=== PATIENT | male | born 1985 | race Caucasian/White ===

== ENCOUNTER 2017-04-16 09:36 | Emergency (ER) | payer OTHER ==
[2017-04-16 10:10] VITALS: BP 127/80
--- NOTE | 2017-04-16 10:42 | UC ---
Back Pain HPI - HPI Summary HPI Summary: 32 yo male with onset of back pain yesterday may have over done it over the holiday no radiation of pain hx herniated cervical disc - History of Current Complaint Chief Complaint: UCBackPain Stated Complaint: BACK PAIN Time Seen by Provider: 04/16/17 10:26 Hx Obtained From: Patient Onset/Duration: Gradual Onset, Lasting Hours Timing: Constant Severity Initially: Moderate Severity Currently: Moderate Pain Intensity: 4 - worse with movement Pain Scale Used: 0-10 Numeric Character: Aching, Throbbing Aggravating: Movement, Lifting, Bending Alleviating: Rest Related History: Similar Episode Dx As - back strain - Allergies/Home Medications Home Medications: Home Medications Acetaminophen TAB* [Tylenol TAB*] 1,000 mg PO Q8H PRN 04/16/17 [History Confirmed 04/16/17] Cyclobenzaprine TAB* [Flexeril 10 MG TAB*] 10 mg PO ONCE PRN 04/16/17 [History Confirmed 04/16/17] Eczema Ointment 1 applic TOPICAL DAILY 04/16/17 [History Confirmed 04/16/17] PMH/Surg Hx/FS Hx/Imm Hx Previously Healthy: Yes - Surgical History Surgical History: Yes Surgery Procedure, Year, and Place: t/a - Family History Known Family History: Positive: Hypertension - Social History Alcohol Use: Occasionally Substance Use Type: Excessive Caffeine, Marijuana Substance Use Comment - Amount & Last Used: 2-3 espresso type drinks daily; marijuana q pm last was 04/15/17 Smoking Status (MU): Never Smoked Tobacco Review of Systems Constitutional: Negative Skin: Negative Eyes: Negative ENT: Negative Respiratory: Negative Cardiovascular: Negative Gastrointestinal: Negative Genitourinary: Negative Motor: Negative Neurovascular: Negative Musculoskeletal: Myalgia Neurological: Negative Psychological: Negative All Other Systems Reviewed And Are Negative: Yes Physical Exam Triage Information Reviewed: Yes Appearance: Well-Appearing, No Pain Distress, Well-Nourished Vital Signs: Initial Vital Signs Temp 97.6 F 04/16/17 09:41 Pulse 73 04/16/17 09:41 Resp 18 04/16/17 09:41 BP 127/80 04/16/17 09:41 Vital Signs Reviewed: Yes Eyes: Positive: Conjunctiva Clear ENT: Positive: Hearing grossly normal. Negative: Nasal congestion, Nasal drainage, Trismus, Muffled/hoarse voice Neck: Positive: Supple, Nontender Respiratory: Positive: Lungs clear, Normal breath sounds, No respiratory distress Cardiovascular: Positive: RRR, No Murmur Musculoskeletal: Positive: ROM Intact, No Edema Neurological: Positive: Alert, Muscle Tone Normal Psychological Exam: Normal Back Pain Course/Dx - Differential Dx/Diagnosis Provider Diagnoses: acute lumbar strain/spasm Discharge - Discharge Plan Condition: Stable Disposition: HOME Prescriptions: Cyclobenzaprine TAB* [Flexeril 10 MG TAB*] 10 mg PO TID PRN #21 tab PRN Reason: Spasms - Back Naproxen Sodium [Naproxen Sodium 500 MG TAB] 500 mg PO BID PRN #30 tab PRN Reason: Pain Patient Education Materials: Low Back Strain (ED) Forms: *Work Release Referrals: Devante Moore MD [Primary Care Provider] - 5 Days (if not better) Additional Instructions: recheck here if you are not feeling better prior to returning to work don't take muscle relaxant and drive or work Images Front/Back of Body, Lg ([place]): 1 - bilate paraspinous muscle tenderness. R>L
== END 2017-04-16 10:53 | disposition home or self-care (01) ==
LOC: UCCORT 09:36
DX: S39.012A Strain of muscle, fascia and tendon of lower back, initial encounter (principal); X58.XXXA Exposure to other specified factors, initial encounter; Y93.9 Activity, unspecified; Y92.9 Unspecified place or not applicable; M62.830 Muscle spasm of back; F12.90 Cannabis use, unspecified, uncomplicated
CPT/HCPCS: 99202; G0463

== ENCOUNTER 2017-11-26 14:31 | Emergency (ER) | payer OTHER ==
[2017-11-26 15:52] VITALS: BP 135/77
[2017-11-26] MEDS ORDERED: Ondansetron ODT TAB* 4 MG PO ONE (15:54)
--- NOTE | 2017-11-26 17:01 | UC ---
Nausea/Vomiting/Diarrhea HPI - HPI Summary HPI Summary: pt presents c/o sudden onset n/v/d since 10:30 pm last night. he is c/o fever, bodyaches and abdominal pain. diarrhea is watery but denies blood and mucous. no hx IBD, travel, well water, sick contacts, raw seafood consumption and recent antibiotic use. he also c/o feeling weak and dizzy. 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 Onset/Duration: Sudden Onset Timing: Constant Severity Initially: Severe Severity Currently: Severe Pain Intensity: 0 Location: Discrete At: LUQ Character: Sharp, Cramping Aggravating Factor(s): Food Alleviating Factor(s): Nothing Vomiting Characteristics: Nonbilious Diarrhea Presence: Yes Diarrhea Characteristics: Watery - Risk Factors Influenza Risk Factors: Negative - Allergies/Home Medications Allergies/Adverse Reactions: Allergies Allergy/AdvReac Type Severity Reaction Status Date / Time amoxicillin [From Augmentin] Allergy Hives Verified 11/26/17 15:43 cefaclor [From Ceclor] Allergy Hives Verified 11/26/17 15:43 clavulanic acid Allergy Hives Verified 11/26/17 15:43 [From Augmentin] Penicillins Allergy Hives Verified 11/26/17 15:43 Home Medications: Home Medications Minocycline HCl 1 tab DAILY PRN 11/26/17 [History Confirmed 11/26/17] PMH/Surg Hx/FS Hx/Imm Hx Previously Healthy: Yes - Surgical History Surgical History: Yes Surgery Procedure, Year, and Place: t/a - Family History Known Family History: Positive: Hypertension - Social History Occupation: Employed Full-time Lives: With Family Alcohol Use: None Substance Use Type: None Substance Use Comment - Amount & Last Used: 2-3 espresso type drinks daily; marijuana q pm last was 04/15/17 Smoking Status (MU): Never Smoked Tobacco Review of Systems Constitutional: Fever, Chills, Fatigue Skin: Negative Eyes: Negative ENT: Negative Respiratory: Negative Cardiovascular: Negative Gastrointestinal: Abdominal Pain, Vomiting, Diarrhea Genitourinary: Negative Motor: Negative Neurovascular: Negative Musculoskeletal: Negative Neurological: Negative Psychological: Negative Is Patient Immunocompromised?: No All Other Systems Reviewed And Are Negative: Yes Physical Exam Triage Information Reviewed: Yes Appearance: Ill-Appearing Vital Signs: Initial Vital Signs Temp 99.5 F 11/26/17 15:46 Pulse 88 11/26/17 15:46 Resp 16 11/26/17 15:46 BP 135/77 11/26/17 15:46 Pulse Ox 100 11/26/17 15:46 Vital Signs Reviewed: Yes Eye Exam: Normal ENT Exam: Normal Neck: Positive: Supple, Nontender, No Lymphadenopathy Respiratory: Positive: Lungs clear, Normal breath sounds, No respiratory distress Cardiovascular: Positive: RRR, No Murmur Abdomen Description: Positive: No Organomegaly, Soft, Other: - LUQ tenderness but no quarding or HSM on exam Bowel Sounds: Positive: Hyperactive Musculoskeletal Exam: Normal Neurological: Positive: Alert Psychological: Positive: Age Appropriate Behavior Skin Exam: Normal Diagnostics - Laboratory Diagnostic Studies Completed/Ordered: rapid flu=negative Naus/Vom/Diarrhea Course/Dx - Course Course Of Treatment: pt has acute intractable v/d with LUQ pain. requires additional evaluation and agrees to ER transfer. rapid flu was negative and no relief from n/v with zofran here. fiance driving pt to ER directly from . - Differential Dx/Diagnosis Differential Diagnoses - Male: Hepatitis, Pancreatitis, Enterocolitis, Gastroenteritis (Viral), Gastroenteritis (Bacterial) Condition At Discharge: Stable - Physician Notification/Consults Time Discussed With Above Provider: 17:08 Discharge - Discharge Plan Condition: Stable Disposition: TRANS HIGHER LVL OF CARE FAC Referrals: Devante Moore MD [Primary Care Provider] - Additional Instructions: GO DIRECTLY TO THE [facility] ER. DO NOT ATTEMPT TO EAT OR DRINK
== END 2017-11-26 17:16 | disposition short-term general hospital (02) ==
LOC: UCCORT 14:31
DX: R11.2 Nausea with vomiting, unspecified (principal); R19.7 Diarrhea, unspecified; R10.32 Left lower quadrant pain
CPT/HCPCS: 87502; 99212; A9270-GY; G0463

== ENCOUNTER 2018-07-01 07:26 | Emergency (ER) | payer OTHER ==
[2018-07-01 07:43] VITALS: BP 121/69
[2018-07-01] MEDS ORDERED: Ibuprofen TAB* 600 MG PO ONE (07:57)
--- NOTE | 2018-07-01 08:01 | UC ---
Neck Pain HPI - HPI Summary HPI Summary: 33 YO MALE who comes to clinic today with a chief complaint of neck and right shoulder pain. Patient reports he slipped and fell on his stairs at home this morning. When he fell he grabbed THE RAILING with his right arm. Initially went to work but noticed that his right shoulder and neck pain or worsening. He went and saw the nurse at work she recommended further evaluation. Patient' s had a prior injury of C5 6 and C6 7 disc's. In the past she's had intermittent radiculopathy into the arms to include intermittent numbness. The worst of the symptoms are usually on the right side. The worst pain now is in the right shoulder although the patient also feels it in his lower neck. When he moves his shoulder that pain does radiate down into the right hand. No complaints of weakness this morning. Patient did have some tingling and right hand fingers but he does not have THAT NOW.. - History of Current Complaint Chief Complaint: UCUpperExtremity Stated Complaint: S/P FALL NECK AND RIGHT SHOULDER Time Seen by Provider: 07/01/18 07:44 Pain Intensity: 4 - Allergies/Home Medications Allergies/Adverse Reactions: Allergies Allergy/AdvReac Type Severity Reaction Status Date / Time amoxicillin [From Augmentin] Allergy Hives Verified 07/01/18 07:40 cefaclor [From Ceclor] Allergy Hives Verified 07/01/18 07:40 clavulanic acid Allergy Hives Verified 07/01/18 07:40 [From Augmentin] Penicillins Allergy Hives Verified 07/01/18 07:40 Home Medications: Home Medications Guaifen/Phenyleph/Acetaminophn [Tylenol Sinus Severe Caplet] 2 tab PO SEE INSTRUCTIONS PRN 07/01/18 [History Confirmed 07/01/18] PMH/Surg Hx/FS Hx/Imm Hx Previously Healthy: Yes - C5/6, C6/7 PRIOR DISK INJURY - Surgical History Surgical History: Yes Surgery Procedure, Year, and Place: T&A, 1990, [place] - Family History Known Family History: Positive: Hypertension, Diabetes, Other - FATHER PROSTATE CA - Social History Alcohol Use: None Substance Use Type: None Substance Use Comment - Amount & Last Used: 2-3 espresso type drinks daily; marijuana q pm last was 04/15/17 Smoking Status (MU): Never Smoked Tobacco Review Of Systems Constitutional: Positive: Negative Skin: Positive: Negative Eyes: Positive: Negative ENT: Positive: Negative Respiratory: Positive: Negative. Negative: Shortness Of Breath Cardiovascular: Positive: Negative. Negative: Chest Pain Gastrointestinal: Positive: Negative Genitourinary: Positive: Negative Musculoskeletal: Positive: Arthralgia, Decreased ROM - Of the right arm secondary to pain Neurological: Positive: Paresthesia - Patient reported some tingling in the right hand earlier. He does not have that now. No complaint of any weakness. Negative: Weakness Psychological: Positive: Negative All Other Systems Reviewed And Are Negative: Yes Physical Exam Triage Information Reviewed: Yes Appearance: Well-Appearing, Well-Nourished Vital Signs: Initial Vital Signs Temp 97.6 F 07/01/18 07:37 Pulse 65 07/01/18 07:37 Resp 15 07/01/18 07:37 BP 121/69 07/01/18 07:37 Pulse Ox 98 07/01/18 07:37 Vital Signs Reviewed: Yes Eye Exam: Normal Neck: Positive: Supple Respiratory: Positive: Chest non-tender, Lungs clear, Normal breath sounds, No respiratory distress Cardiovascular: Positive: RRR Musculoskeletal: Positive: ROM Limited @ - Patient has normal pulses both arms. The fingers and wrists and elbows have full range of motion and full strength. Left shoulder has full range of motion with extension and abduction and internal rotation is T8. Right arm internal rotation is L4. Right shoulder extension is 130 abduction is limited by pain to 90. Neurological: Positive: Muscle Tone Normal Psychological Exam: Normal Skin Exam: Normal Neck Pain Course/Dx - Course Course Of Treatment: Order Information: CT SPINE CERVICAL W/O. Accession Number : [id number]. CPT: 92967. INDICATION: Neck and RIGHT shoulder pain post fall. COMPARISON: No relevant prior exams available on the [facility] PACS for comparison. TECHNIQUE: Multidetector CT images foramen magnum to lung apices without contrast. Multiplanar reformation. REPORT: Normal vertebral alignment accounting for exam positioning without. spondylolisthesis or subluxation at any level. Negative for cervical vertebral body or. posterior element fracture. Negative for paravertebral hematoma. Multilevel degenerative spondylosis and facet joint osteoarthritis. At C5-C6 dorsal disc osteophyte complex results in mild impression on the ventral margin. of the thecal sac and uncinate process spurring and facet joint osteoarthritis results in. moderately severe RIGHT and mild LEFT foraminal stenosis. At C6-C7 dorsal disc osteophyte complex without significant resulting impression on the. ventral margin of the thecal sac. Uncinate process spurring and facet joint osteoarthritis. results in mild bilateral foraminal stenosis. IMPRESSION: #. No CT evidence for acute traumatic cervical spine injury. . <Electronically signed by Marcus Travis MD in OV> 07/01/18826. Order Information: SHOULDER RIGHT 2+ VWS. Accession Number: [id number]. CPT: 07094. Indication: RIGHT shoulder pain post fall. Comparison: No relevant prior exams available on the [facility] PACS for comparison. Technique: Internal rotation AP, external rotation Grashey, scapular Y, axillary views. RIGHT shoulder. Report: Negative for fracture. Normal acromioclavicular and glenohumeral joint alignment. No significant arthropathic change evident. Unremarkable soft tissue contours. IMPRESSION: # . Negative radiographic exam of the RIGHT shoulder. . <Electronically signed by Marcus Travis MD in [place]> 07/01/18827. Dictated By: Marcus Travis MD. Dictated Date/Time : 07/01/18827. Transcribed Date/Time: 07/01/18826. Discussed x-ray reports WITH the patient. The patient does have some tingling in his fingers bilaterally now. He reports this is common with his chronic neck injury. The plan now is be out of work for today and possibly tomorrow. Take ibuprofen and use Flexeril and [place] as needed. The patient has seen the [facility] in the past and is followed with THEM. As long as he improves, he'll be able to return to work tomorrow or the next day. If he does not improve he' ll follow-up with [facility]. We discussed further evaluation in the emergency department with access to MRI if any neurologic deficit develops. - Differential Dx/Diagnosis Provider Diagnoses: NECK PAIN. RIGHT SHOULDER PAIN. CERVICAL RADICULOPATHY Discharge - Sign-Out/Discharge Documenting (check all that apply): Patient Departure All imaging exams completed and their final reports reviewed: Yes - Discharge Plan Condition: Stable Disposition: HOME Prescriptions: Cyclobenzaprine TAB* [Flexeril 10 MG TAB*] 10 mg PO TID PRN #15 tab PRN Reason: Pain HYDROcodone/ACETAMIN 5-325 MG* [[place] 5-325 TAB*] 1 tab PO Q4H PRN #20 tab MDD 6 PRN Reason: Pain Patient Education Materials: Cervical Strain (ED), Cervical Radiculopathy (ED) , Shoulder Pain (ED) Forms: *Work Release Referrals: Devante Moore MD [Primary Care Provider] - Additional Instructions: FOLLOW UP WITH YOUR ORTHOPEDIST IF NOT COMPLETELY IMPROVED. GET RECHECKED FOR ANY WORSENING OF YOUR CONDITION; WEAKNESS, NUMBNESS, PAIN OR QUESTIONS OR CONCERNS. - Billing Disposition and Condition Condition: STABLE Disposition: Home - Attestation Statements Document Initiated by Francescoiblazaro: No
--- NOTE | 2018-07-01 08:30 | RAD ---
INDICATION: Neck and RIGHT shoulder pain post fall. COMPARISON: No relevant prior exams available on the [facility] [place] for [place]. TECHNIQUE: Multidetector CT images foramen magnum to lung apices without contrast. Multiplanar reformation. REPORT: Normal vertebral alignment accounting for exam positioning without spondylolisthesis or subluxation at any level. Negative for cervical vertebral body or posterior element fracture. Negative for paravertebral hematoma. Multilevel degenerative spondylosis and facet joint osteoarthritis. At C5-C6 dorsal disc osteophyte complex results in mild impression on the ventral margin of the thecal sac and uncinate process spurring and facet joint osteoarthritis results in moderately severe RIGHT and mild LEFT foraminal stenosis. At C6-C7 dorsal disc osteophyte complex without significant resulting impression on the ventral margin of the thecal sac. Uncinate process spurring and facet joint osteoarthritis results in mild bilateral foraminal stenosis. IMPRESSION: #. No CT evidence for acute traumatic cervical spine injury.
--- NOTE | 2018-07-01 08:31 | RAD ---
Indication: RIGHT shoulder pain post fall. Comparison: No relevant prior exams available on the [facility] PACS for comparison. Technique: Internal rotation AP, external rotation Grashey, scapular Y, axillary views RIGHT shoulder Report: Negative for fracture. Normal acromioclavicular and glenohumeral joint alignment. No significant arthropathic change evident. Unremarkable soft tissue contours. IMPRESSION: #. Negative radiographic exam of the RIGHT shoulder.
== END 2018-07-01 08:57 | disposition home or self-care (01) ==
LOC: UCCORT 07:26
DX: M54.2 Cervicalgia (principal); M25.511 Pain in right shoulder; M54.12 Radiculopathy, cervical region; W10.9XXA Fall (on) (from) unspecified stairs and steps, initial encounter; Y93.01 Activity, walking, marching and hiking; Y92.009 Unspecified place in unspecified non-institutional (private) residence as the place of occurrence of the external cause; Z88.8 Allergy status to other drugs, medicaments and biological substances; Z88.1 Allergy status to other antibiotic agents; Z88.0 Allergy status to penicillin
CPT/HCPCS: 72125; 99212; A9270-GY; G0463

== ENCOUNTER 2019-07-19 08:10 | Emergency (ER) | payer OTHER | END 2019-07-19 08:33 | disposition left against medical advice (07) | LOC: UCCORT 08:10 | DX: Z53.21 Procedure and treatment not carried out due to patient leaving prior to being seen by health care provider (principal) ==